=== PATIENT | male | born 1965 | race Caucasian/White ===

== ENCOUNTER 2021-04-08 03:29 | Inpatient (IN) | payer MEDICAID ==
[~2021-04-08] VITALS: Ht 175.3 cm; Wt 131.0 kg
[2021-04-08] MEDS ORDERED: vancomycin/NS 1 GM ADD-VANTAGE 250 ML IV ONE (05:20)
[2021-04-08] MEDS ORDERED: TETanus/Pertussis (Acell)/Diphther VAC/PF (Tdap-Adult) 0.5ml syringe IMVAC ONE (05:20)
--- NOTE | 2021-04-08 06:30 | NUR ---
pt has wounds to his bilateral lower legs. some open and raw looking but no obvious drainage. pt has redness to his legs up to his abd and a demarkation around his upper abd with redness and then his upper chest is a normal pink color. pt states the redness in his abd is new. the wounds have been going on for a while now and are getting worse. he states he was using lidoderm patches on the open spots on his legs.
[2021-04-08 07:42] LABS: BASOPHILS # (AUTO) 0.1 X10'3 (0-0.2); BASOPHILS % (AUTO) 1.2 % (0-1); EOSINOPHILS # (AUTO) 0.2 X10'3 (0-0.9); EOSINOPHILS % (AUTO) 2.9 % (0-6); HEMATOCRIT 39.9 % (42.0-52.0); HEMOGLOBIN 13.1 g/dl (14.0-17.9); LYMPHOCYTES # (AUTO) 1.6 X10'3 (1.1-4.8); LYMPHOCYTES % (AUTO) 18.8 % (21-51); MEAN CORPUSCULAR HEMOGLOBIN 26.9 PG (27.0-31.0); MEAN CORPUSCULAR HGB CONC 32.8 g/dL (33.0-36.5); MEAN CORPUSCULAR VOLUME 82.2 FL (78-98); MEAN PLATELET VOLUME 6.9 FL (7.4-10.4); MONOCYTES # (AUTO) 1.3 X10'3 (0-0.9); MONOCYTES % (AUTO) 14.9 % (2-12); NEUTROPHILS # (AUTO) 5.2 X10'3 (1.8-7.7); NEUTROPHILS % (AUTO) 62.2 % (42-75); PLATELET COUNT 270 X10'3 (140-440); RED BLOOD COUNT 4.85 X10'6 (4.70-6.10); RED CELL DISTRIBUTION WIDTH 16.7 % (11.5-14.5); WHITE BLOOD COUNT 8.4 X10'3 (4.5-11.0)
[2021-04-08 07:57] LABS: ALANINE AMINOTRANSFERASE 37 U/L (12-78); ALBUMIN 2.9 G/DL (3.4-5.0); ALBUMIN/GLOBULIN RATIO 0.5 (1.1-1.5); ALKALINE PHOSPHATASE 191 IU/L (46-116); ANION GAP 10 (8-16); ASPARTATE AMINO TRANSFERASE 25 U/L (10-37); BILIRUBIN,TOTAL 1.5 MG/DL (0.1-1.0); BLOOD UREA NITROGEN 18 MG/DL (7-18); BUN/CREATININE RATIO 11.5 (5.4-32.0); CALCIUM 8.4 MG/DL (8.5-10.1); CHLORIDE 102 MMOL/L (99-107); CREATININE 1.57 MG/DL (0.60-1.10); GLUCOSE 137 MG/DL (70-104); POTASSIUM 4.4 MMOL/L (3.5-5.1); SODIUM 140 MMOL/L (135-145); TOTAL CARBON DIOXIDE 27.9 MMOL/L (24-32); TOTAL PROTEIN 8.3 G/DL (6.4-8.2); eGFR 46 ML/MIN
[2021-04-08] MEDS ORDERED: furosemide 40mg/4ml inj IV ONE (08:30)
[2021-04-08] MEDS ORDERED: metoprolol tartrate 1mg/ml inj IV ONE ×3 (08:30→15:00)
[2021-04-08] MEDS ORDERED: magnesium hydroxide 30ml (MOM) UD suspension PO PRN (08:40)
[2021-04-08] MEDS ORDERED: diltiazem 5mg/ml 5ml inj. IV ONE (08:40)
[2021-04-08] MEDS ORDERED: mag hydrox/Alum hydrox/simeth 30ml oral suspension PO PRN (08:40)
[2021-04-08] MEDS ORDERED: enoxaparin 40mg/0.4ml syringe SUBCUT SCH (08:49)
--- NOTE | 2021-04-08 09:00 | NUR ---
Attempted to take pictures of the wounds on the pt's legs but the camera battery is and the other battery on the unit is not the right type and can't find another camera on the unit.
--- NOTE | 2021-04-08 09:40 | NUR ---
spoke with dr granda regarding patient's home medications on the external medication hx on 03/31 his lasix was doubled to 80 mg daily and his metoprolol was double to 100 mg bid. patient reports not taking the increased doses because" the lipitor made me schizophrenic" daniella talks very fast,switches subjects rapidly and waves his arms around frequently
[2021-04-08] MEDS ORDERED: diphenhydrAMINE 50 mg/ml inj IV ONE (09:50)
[2021-04-08] MEDS ORDERED: metoprolol succinate 25mg (24-HOUR) SR. Tablet PO ONE (09:50)
[2021-04-08] MEDS ORDERED: morphine 4 MG/ML inj SYRINge IV ONE (09:50)
[2021-04-08] MEDS: acetaminophen 325mg tablet PO PRN (09:56)
[2021-04-08 10:06] LABS: URINE AMPHETAMINE SCREEN POSITIVE (Neg); URINE BARBITUATE SCREEN NEGATIVE (Neg); URINE BENZODIAZEPINES SCREEN POSITIVE (Neg); URINE CANNABINOID SCREEN NEGATIVE (Neg); URINE COCAINE SCREEN NEGATIVE (Neg); URINE METHADONE SCREEN NEGATIVE (Neg); URINE OPIATE SCREEN NEGATIVE (Neg); URINE PHENCYCLIDINE SCREEN NEGATIVE (Neg)
--- NOTE | 2021-04-08 10:53 | NUR ---
PHONE REPORT TO MANDO BAUER, RN AWARE THAT PHOTOS OF WOUNDS NOT TAKEN DUE TO ER [facility] NOT WORKING, PATIENT TO GO TO 3018A ON MONITOR WITH RN
[2021-04-08] MEDS ORDERED: FURO80TA3 PO (10:55)
[2021-04-08] MEDS ORDERED: LISI20TA28 PO (10:56)
[2021-04-08] MEDS ORDERED: METO100T14 PO (10:57)
[2021-04-08] MEDS ORDERED: APIX5TAB3 PO (10:58)
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
[2021-04-08 12:29] VITALS: BP 148/105
--- NOTE | 2021-04-08 12:30 | NUR ---
Page Sent promotional table spacer PAGER ID: [phone] MESSAGE: Edilson Donovan. Pt is in room, in A flutter HR 130s to 140s, Please adviseFatmata [id number]
[2021-04-08 15:00] VITALS: BP 127/86
--- NOTE | 2021-04-08 16:28 | NUR ---
promotional table spacer PAGER ID: [phone] MESSAGE: [id number] Edilson. Pt is having anxiety attack and would like some Ativan. Fatmata [id number]
[2021-04-08] MEDS: ceFAZolin/D5W- 1GM premix 50 ML IV SCH (16:58)
[2021-04-08] MEDS: LORazepam 2 mg/ml vial IV PRN (17:23)
[2021-04-08 18:00] VITALS: BP 130/73
--- NOTE | 2021-04-08 18:26 | NUR ---
Patient in room PCU 3018. I have received report from Fatmata BAUER and had the opportunity to ask questions and assume patient care. Patient sleeping for bedside report.
[2021-04-08] MEDS: apixaban 5mg tablet PO SCH (19:59)
[2021-04-08 20:00] VITALS: BP 93/65
[2021-04-08] MEDS: furosemide 40mg/4ml inj IV SCH (20:00)
[2021-04-08] MEDS ORDERED: metoprolol tartrate 50mg tablet PO SCH (20:00)
[2021-04-08] MEDS: metoprolol tartrate 50mg tablet PO SCH (20:00)
--- NOTE | 2021-04-08 21:06 | NUR ---
Spoke to Dr. Abel regarding pain in lower legs. Dr. Abel comfortable ordering 2mg Morphine IV every 4 hours as needed for pain.
[2021-04-08 21:08] VITALS: BP 108/84
[2021-04-08 22:00] VITALS: BP 108/76
[2021-04-08] MEDS: morphine 2 MG/ML inj. syringe IV PRN (23:03)
--- NOTE | 2021-04-08 23:22 | NUR ---
Patient refused 2mg Morphine, patient requested 1mg to see how he felt with half the dosage. 1mg Morphine given 2303 PRN for severe pain. Patient felt pain relief with 1mg. Will ask Dr. Abel to change the order to 1mg Morphine as needed for pain every 4 hours. Addendum: 04/08/21 at 2333 by Kristen Green RN 1mg Morphine waste witnessed by Stas BAUER.
[2021-04-08] MEDS ORDERED: morphine 2 MG/ML inj. syringe IV PRN (23:25)
[2021-04-09] MEDS: ceFAZolin/D5W- 1GM premix 50 ML IV SCH ×4 (00:53→23:28)
[2021-04-09 02:00] VITALS: BP 138/72
--- NOTE | 2021-04-09 04:07 | NUR ---
Patient finally sleeping around 0300.
--- NOTE | 2021-04-09 05:10 | NUR ---
Patient now awake and requesting a shower, willing to wait until later in the morning
--- NOTE | 2021-04-09 05:10 | NUR ---
Several times patient removed tele monitor and nasal canula. Re-educated patient several times about the importance of wearing both.
[2021-04-09] MEDS: LORazepam 2 mg/ml vial IV PRN ×2 (05:53→22:29)
[2021-04-09 06:00] VITALS: BP 155/111
--- NOTE | 2021-04-09 06:35 | NUR ---
Problems reprioritized. Patient report given, questions answered & plan of care reviewed with Nancy RN. Patient awake for report and denies needs.
--- NOTE | 2021-04-09 06:36 | NUR ---
Patient in room PCU 3018. I have received report from Kristen BAUER and had the opportunity to ask questions and assume patient care.
[2021-04-09] MEDS: furosemide 40mg/4ml inj IV SCH ×2 (07:22→19:46)
[2021-04-09] MEDS: apixaban 5mg tablet PO SCH ×2 (07:30→19:47)
[2021-04-09] MEDS: metoprolol tartrate 50mg tablet PO SCH ×2 (07:30→19:46)
[2021-04-09] MEDS: lisinopril 20mg tablet PO SCH (07:31)
[2021-04-09 08:14] LABS: BASOPHILS # (AUTO) 0.1 X10'3 (0-0.2); BASOPHILS % (AUTO) 1.3 % (0-1); EOSINOPHILS # (AUTO) 0.1 X10'3 (0-0.9); EOSINOPHILS % (AUTO) 1.4 % (0-6); HEMATOCRIT 42.1 % (42.0-52.0); HEMOGLOBIN 13.5 g/dl (14.0-17.9); LYMPHOCYTES % (AUTO) 20.3 % (21-51); MEAN CORPUSCULAR HEMOGLOBIN 26.8 PG (27.0-31.0); MEAN CORPUSCULAR HGB CONC 32.1 g/dL (33.0-36.5); MEAN CORPUSCULAR VOLUME 83.3 FL (78-98); MEAN PLATELET VOLUME 7.7 FL (7.4-10.4); MONOCYTES # (AUTO) 1.2 X10'3 (0-0.9); MONOCYTES % (AUTO) 11.9 % (2-12); NEUTROPHILS # (AUTO) 6.3 X10'3 (1.8-7.7); NEUTROPHILS % (AUTO) 65.1 % (42-75); PLATELET COUNT 332 X10'3 (140-440); RED BLOOD COUNT 5.05 X10'6 (4.70-6.10); RED CELL DISTRIBUTION WIDTH 16.7 % (11.5-14.5); WHITE BLOOD COUNT 9.7 X10'3 (4.5-11.0)
[2021-04-09 08:42] LABS: ALANINE AMINOTRANSFERASE 42 U/L (12-78); ALBUMIN/GLOBULIN RATIO 0.6 (1.1-1.5); ALKALINE PHOSPHATASE 193 IU/L (46-116); ANION GAP 10 (8-16); ASPARTATE AMINO TRANSFERASE 45 U/L (10-37); BILIRUBIN,TOTAL 2.4 MG/DL (0.1-1.0); BLOOD UREA NITROGEN 24 MG/DL (7-18); CALCIUM 8.7 MG/DL (8.5-10.1); CHLORIDE 100 MMOL/L (99-107); GLUCOSE 131 MG/DL (70-104); POTASSIUM 4.2 MMOL/L (3.5-5.1); SODIUM 136 MMOL/L (135-145); TOTAL CARBON DIOXIDE 26.3 MMOL/L (24-32); TOTAL PROTEIN 8.3 G/DL (6.4-8.2); eGFR 45 ML/MIN
[2021-04-09] MEDS: morphine 2 MG/ML inj. syringe IV PRN ×3 (09:46→18:54)
[2021-04-09 11:00] VITALS: BP 115/80
--- NOTE | 2021-04-09 16:49 | NUR ---
Initial: Pt admit with CHF exacerbation and sepsis secondary to BLE cellulitis. Pt with multiple small open wounds to BLE per H&P. Wound care has been consulted, pending assessment at this time. Pt seen at bedside provided with written and verbal protein education. Pt appeared slightly confused during visit and reports feeling dizzy r/t medications. RD encouraged pt to f/u with RN. Pt on a heart healthy diet documented to be refusing meals, likely poor PO intake is r/t current mentation. RD encouraged PO intake and provided pt with alternative menu to provide additional food options. Food preferences were obtained and d/w dietary, see below. Noted that pt with food at bedside brought in by family. Pt denies difficulty chewing/swallowing. Pt provided with RD contact information and encouraged to reach out. Will continue to follow closely. Recommendations: 1) Continue heart healthy diet; encourage PO intake 2) Monitor need for ONS 3) [place] food preferences: fruit TID, yogurt BIDBD, cottage cheese with pineapple WL 4) Bowel care per rx 5) Scaled wt this admit; weekly scaled weights thereafter Addendum: 04/09/21 at [address] Amended: Links added.
[2021-04-09 18:00] VITALS: BP 117/71
--- NOTE | 2021-04-09 18:05 | NUR ---
Problems reprioritized. Patient report given, questions answered & plan of care reviewed with Barbara BAUER.
[2021-04-09] MEDS: lactobacillus rhamnosus 10,000 MMU CELLS/CAPSULE PO SCH (19:47)
[2021-04-09 22:00] VITALS: BP 114/78
[2021-04-09] MEDS: ondansetron/PF 4mg/2ml inj IV PRN (22:33)
[2021-04-10 02:00] VITALS: BP 112/68
[2021-04-10] MEDS: morphine 2 MG/ML inj. syringe IV PRN ×3 (04:20→17:37)
--- NOTE | 2021-04-10 06:00 | NUR ---
Patient in room PCU 3018. I have received report from Ronak BAUER and had the opportunity to ask questions and assume patient care. Addendum: 04/10/21 at 1812 by Sterling Aguilar RN wrong nurse- [email or web address]_sky
--- NOTE | 2021-04-10 06:15 | NUR ---
Problems reprioritized. Patient report given, questions answered & plan of care reviewed with JUANCARLOS Katz.
[2021-04-10 06:57] LABS: BASOPHILS # (AUTO) 0.1 X10'3 (0-0.2); BASOPHILS % (AUTO) 0.6 % (0-1); EOSINOPHILS # (AUTO) 0.4 X10'3 (0-0.9); EOSINOPHILS % (AUTO) 3.6 % (0-6); HEMATOCRIT 42.8 % (42.0-52.0); LYMPHOCYTES # (AUTO) 2.2 X10'3 (1.1-4.8); LYMPHOCYTES % (AUTO) 21.2 % (21-51); MEAN CORPUSCULAR HEMOGLOBIN 27.2 PG (27.0-31.0); MEAN CORPUSCULAR HGB CONC 32.6 g/dL (33.0-36.5); MEAN CORPUSCULAR VOLUME 83.5 FL (78-98); MEAN PLATELET VOLUME 7.7 FL (7.4-10.4); MONOCYTES # (AUTO) 2.1 X10'3 (0-0.9); MONOCYTES % (AUTO) 20.2 % (2-12); NEUTROPHILS # (AUTO) 5.6 X10'3 (1.8-7.7); NEUTROPHILS % (AUTO) 54.4 % (42-75); PLATELET COUNT 301 X10'3 (140-440); RED BLOOD COUNT 5.13 X10'6 (4.70-6.10); RED CELL DISTRIBUTION WIDTH 16.8 % (11.5-14.5); WHITE BLOOD COUNT 10.2 X10'3 (4.5-11.0)
[2021-04-10 07:00] VITALS: BP 108/89
[2021-04-10] MEDS: mineral oil/petrolatum, white cream 113gm jar TP SCH (08:00)
[2021-04-10 08:07] LABS: ALANINE AMINOTRANSFERASE 68 U/L (12-78); ALBUMIN 2.6 G/DL (3.4-5.0); ALBUMIN/GLOBULIN RATIO 0.5 (1.1-1.5); ALKALINE PHOSPHATASE 170 IU/L (46-116); ANION GAP 9 (8-16); ASPARTATE AMINO TRANSFERASE 95 U/L (10-37); BILIRUBIN,TOTAL 2.2 MG/DL (0.1-1.0); BLOOD UREA NITROGEN 33 MG/DL (7-18); BUN/CREATININE RATIO 18.3 (5.4-32.0); CALCIUM 8.1 MG/DL (8.5-10.1); CHLORIDE 100 MMOL/L (99-107); GLUCOSE 118 MG/DL (70-104); POTASSIUM 4.8 MMOL/L (3.5-5.1); SODIUM 136 MMOL/L (135-145); TOTAL CARBON DIOXIDE 26.8 MMOL/L (24-32); TOTAL PROTEIN 7.7 G/DL (6.4-8.2); eGFR 39 ML/MIN
[2021-04-10] MEDS: furosemide 40mg/4ml inj IV SCH (08:22)
[2021-04-10] MEDS: apixaban 5mg tablet PO SCH ×2 (08:24→21:03)
[2021-04-10] MEDS: lactobacillus rhamnosus 10,000 MMU CELLS/CAPSULE PO SCH ×2 (08:24→21:03)
[2021-04-10] MEDS: lisinopril 20mg tablet PO SCH (08:28)
[2021-04-10] MEDS: ceFAZolin/D5W- 1GM premix 50 ML IV SCH ×2 (08:29→15:44)
[2021-04-10] MEDS: metoprolol tartrate 50mg tablet PO SCH ×2 (08:29→21:03)
[2021-04-10 09:01] LABS: PLATELET ESTIMATE NORMAL; TOTAL CELLS COUNTED 100
[2021-04-10 09:02] LABS: ANISOCYTOSIS 1+
[2021-04-10 11:00] VITALS: BP 114/87
[2021-04-10] MEDS: LORazepam 2 mg/ml vial IV PRN ×2 (13:10→21:16)
[2021-04-10 15:00] VITALS: BP_SYST 121; BP_SYST 128; BP_DIAS 73; BP_DIAS 94
--- NOTE | 2021-04-10 17:03 | NUR ---
up to shower with shower chair. dresings removed and tele notified. iv wrapped. pt deny diizzyness or sob
[2021-04-10 18:00] VITALS: BP 138/77
--- NOTE | 2021-04-10 18:34 | NUR ---
Problems reprioritized. Patient report given, questions answered & plan of care reviewed with Joshua BAUER.
[2021-04-10] MEDS: furosemide 20 MG/2 ML vial IV SCH (21:04)
[2021-04-10 22:00] VITALS: BP 143/86
--- NOTE | 2021-04-10 23:48 | NUR ---
Patient refusing telemetry after patient teaching. Patient currently refusing all medicine administration after patient teaching of importance of meds.
[2021-04-11] MEDS: ondansetron/PF 4mg/2ml inj IV PRN ×2 (00:24→18:54)
[2021-04-11] MEDS: morphine 2 MG/ML inj. syringe IV PRN ×4 (00:24→22:54)
[2021-04-11] MEDS: ceFAZolin/D5W- 1GM premix 50 ML IV SCH ×4 (00:25→23:52)
[2021-04-11 02:00] VITALS: BP 116/73
[2021-04-11] MEDS: LORazepam 2 mg/ml vial IV PRN ×3 (03:15→22:35)
[2021-04-11 06:00] VITALS: BP 155/61
--- NOTE | 2021-04-11 06:00 | NUR ---
Patient in room PCU 3012. I have received report from farzana cartagena and had the opportunity to ask questions and assume patient care.
[2021-04-11 07:22] LABS: BASOPHILS # (AUTO) 0.1 X10'3 (0-0.2); BASOPHILS % (AUTO) 1.2 % (0-1); EOSINOPHILS # (AUTO) 0.1 X10'3 (0-0.9); EOSINOPHILS % (AUTO) 1.3 % (0-6); HEMATOCRIT 44.2 % (42.0-52.0); LYMPHOCYTES # (AUTO) 1.7 X10'3 (1.1-4.8); LYMPHOCYTES % (AUTO) 15.4 % (21-51); MEAN CORPUSCULAR HEMOGLOBIN 26.6 PG (27.0-31.0); MEAN CORPUSCULAR HGB CONC 31.7 g/dL (33.0-36.5); MEAN PLATELET VOLUME 7.5 FL (7.4-10.4); MONOCYTES # (AUTO) 1.7 X10'3 (0-0.9); NEUTROPHILS # (AUTO) 7.6 X10'3 (1.8-7.7); NEUTROPHILS % (AUTO) 67.1 % (42-75); PLATELET COUNT 318 X10'3 (140-440); RED BLOOD COUNT 5.26 X10'6 (4.70-6.10); RED CELL DISTRIBUTION WIDTH 17.2 % (11.5-14.5); WHITE BLOOD COUNT 11.3 X10'3 (4.5-11.0)
[2021-04-11 07:34] LABS: ALANINE AMINOTRANSFERASE 255 U/L (12-78); ALBUMIN/GLOBULIN RATIO 0.5 (1.1-1.5); ALKALINE PHOSPHATASE 184 IU/L (46-116); ANION GAP 12 (8-16); ASPARTATE AMINO TRANSFERASE 427 U/L (10-37); BILIRUBIN,TOTAL 3.1 MG/DL (0.1-1.0); BLOOD UREA NITROGEN 37 MG/DL (7-18); BUN/CREATININE RATIO 22.2 (5.4-32.0); CALCIUM 8.8 MG/DL (8.5-10.1); CHLORIDE 100 MMOL/L (99-107); CREATININE 1.67 MG/DL (0.60-1.10); POTASSIUM 4.5 MMOL/L (3.5-5.1); SODIUM 138 MMOL/L (135-145); TOTAL CARBON DIOXIDE 26.4 MMOL/L (24-32); TOTAL PROTEIN 8.6 G/DL (6.4-8.2); eGFR 42 ML/MIN
[2021-04-11 07:35] LABS: GLUCOSE 99 MG/DL (70-104)
[2021-04-11 07:54] LABS: ANISOCYTOSIS 1+; PLATELET ESTIMATE NORMAL; TOTAL CELLS COUNTED 100
[2021-04-11] MEDS: mineral oil/petrolatum, white cream 113gm jar TP SCH (08:00)
[2021-04-11] MEDS: lisinopril 20mg tablet PO SCH (08:52)
[2021-04-11] MEDS: metoprolol tartrate 50mg tablet PO SCH ×2 (08:52→21:16)
[2021-04-11] MEDS: furosemide 20 MG/2 ML vial IV SCH ×2 (08:53→21:16)
[2021-04-11] MEDS: apixaban 5mg tablet PO SCH ×2 (08:55→21:15)
[2021-04-11] MEDS: lactobacillus rhamnosus 10,000 MMU CELLS/CAPSULE PO SCH ×2 (08:55→21:16)
[2021-04-11 11:00] VITALS: BP 126/69
--- NOTE | 2021-04-11 11:21 | NUR ---
pt having loud outbursts of anger and tearfulness. tangental. " i want to you to let me do what i want! i want to walk down the street.!" then immediately switching to " i want a rootbeer!" " why are you so patient with me!" refused to wear 02 or heart monitor. multiple atempts to have him wear tele but he removes it and gown and sits at bedside. currently pt allowed me to put on 02. 3Lnc.
--- NOTE | 2021-04-11 12:32 | NUR ---
calm relaxed johanna dietrich , rr 20. eyes open to verbal stim. federicoe rat bedside and gave the following info for page to md laurent to answer his question on recent etoh in take.PAGER ID: [phone] MESSAGE: [id number] janna Ortega- daughter says <1glass vodka / day. he has been cutting back on ETOH. ngozi BAUER [id number]
--- NOTE | 2021-04-11 15:00 | NUR ---
refusing vs, ABD US completed
[2021-04-11 18:00] VITALS: BP 153/114
--- NOTE | 2021-04-11 18:10 | NUR ---
Patient in room PCU 3012. I have received report from JUANCARLOS Katz and had the opportunity to ask questions and assume patient care.
--- NOTE | 2021-04-11 18:39 | NUR ---
Problems reprioritized. Patient report given, questions answered & plan of care reviewed with Bebe cartagena .
--- NOTE | 2021-04-12 02:49 | NUR ---
Page Sent PAGER ID: [phone] MESSAGE: RE: Nahun Waggoner RM 3012-A: Pt here for cellulitis, sepsis. Pos for meth on admit. Pt has q6h PRN Ativan 0.5 mg. Pt yelling, jumping up out of bed, removing tele and O2. Can we increase dose and/or freq of Ativan? Thanks, Bebe [phone]
[2021-04-12] MEDS ORDERED: LORazepam 2 mg/ml vial IV PRN (02:50)
[2021-04-12] MEDS: morphine 2 MG/ML inj. syringe IV PRN ×2 (04:06→19:51)
[2021-04-12 06:00] VITALS: BP 141/87
--- NOTE | 2021-04-12 06:00 | NUR ---
Patient in room PCU 3012. I have received report from brennen cartagena and had the opportunity to ask questions and assume patient care.
--- NOTE | 2021-04-12 06:28 | NUR ---
Problems reprioritized. Patient report given, questions answered & plan of care reviewed with JUANCARLOS Katz.
[2021-04-12 07:58] LABS: BASOPHILS # (AUTO) 0.1 X10'3 (0-0.2); BASOPHILS % (AUTO) 1.2 % (0-1); EOSINOPHILS # (AUTO) 0.2 X10'3 (0-0.9); HEMATOCRIT 45.2 % (42.0-52.0); HEMOGLOBIN 14.6 g/dl (14.0-17.9); LYMPHOCYTES # (AUTO) 1.9 X10'3 (1.1-4.8); LYMPHOCYTES % (AUTO) 17.8 % (21-51); MEAN CORPUSCULAR HGB CONC 32.4 g/dL (33.0-36.5); MEAN CORPUSCULAR VOLUME 83.3 FL (78-98); MEAN PLATELET VOLUME 7.9 FL (7.4-10.4); MONOCYTES # (AUTO) 1.4 X10'3 (0-0.9); MONOCYTES % (AUTO) 13.5 % (2-12); NEUTROPHILS % (AUTO) 65.5 % (42-75); PLATELET COUNT 354 X10'3 (140-440); RED BLOOD COUNT 5.42 X10'6 (4.70-6.10); RED CELL DISTRIBUTION WIDTH 17.1 % (11.5-14.5); WHITE BLOOD COUNT 10.7 X10'3 (4.5-11.0)
[2021-04-12] MEDS: mineral oil/petrolatum, white cream 113gm jar TP SCH (08:00)
[2021-04-12 08:09] LABS: ALANINE AMINOTRANSFERASE 323 U/L (12-78); ALBUMIN 2.8 G/DL (3.4-5.0); ALBUMIN/GLOBULIN RATIO 0.5 (1.1-1.5); ALKALINE PHOSPHATASE 160 IU/L (46-116); ANION GAP 8 (8-16); ASPARTATE AMINO TRANSFERASE 479 U/L (10-37); BILIRUBIN,TOTAL 2.3 MG/DL (0.1-1.0); BLOOD UREA NITROGEN 36 MG/DL (7-18); BUN/CREATININE RATIO 22.1 (5.4-32.0); CALCIUM 8.9 MG/DL (8.5-10.1); CHLORIDE 100 MMOL/L (99-107); CREATININE 1.63 MG/DL (0.60-1.10); GLUCOSE 127 MG/DL (70-104); POTASSIUM 4.7 MMOL/L (3.5-5.1); SODIUM 136 MMOL/L (135-145); TOTAL CARBON DIOXIDE 28.1 MMOL/L (24-32); TOTAL PROTEIN 8.1 G/DL (6.4-8.2); eGFR 44 ML/MIN
[2021-04-12] MEDS: furosemide 20 MG/2 ML vial IV SCH ×2 (08:25→19:21)
[2021-04-12] MEDS: lactobacillus rhamnosus 10,000 MMU CELLS/CAPSULE PO SCH ×2 (08:25→19:21)
[2021-04-12] MEDS: ceFAZolin/D5W- 1GM premix 50 ML IV SCH ×3 (08:25→23:04)
[2021-04-12] MEDS: lisinopril 20mg tablet PO SCH (08:26)
[2021-04-12] MEDS: metoprolol tartrate 50mg tablet PO SCH ×2 (08:26→19:21)
[2021-04-12] MEDS: apixaban 5mg tablet PO SCH ×2 (08:26→19:21)
[2021-04-12 11:00] VITALS: BP 112/90
--- NOTE | 2021-04-12 12:15 | NUR ---
Reassessment: Per WOC notes pt with full thickness venous ulcer to bilat lower legs. Pt documented to be refusing meals since admit with the exception of 25% PO intake x 1 meal. Pt has been seen by RD and provided with alternative menu and RD contact information. PO intake encouraged and pt receiving food preferences. Pt resistive to care per physical assessment and per MD note very sleepy. Likely that pt with poor PO intake r/t sleeping through meals. Recommend waking pt for meals with tray pass and allowing outside food to be brought in from home to optimize PO intake. LBM 04/09 with PRN bowel care available. D/w dietary to send prunes and prune juice with next meal to assist with bowel regularity, though pt would likely benefit from routine bowel care. Will continue to follow closely. Recommendations: 1) Continue heart healthy diet; encourage PO intake 2) Monitor need for ONS 3) [place] food preferences: fruit TID, yogurt BIDBD, cottage cheese with pineapple WL 4) Routine bowel care 5) Scaled wt this admit; weekly scaled weights thereafter Addendum: 04/12/21 at [address] Amended: Links added.
[2021-04-12 15:00] VITALS: BP 151/103
--- NOTE | 2021-04-12 18:18 | NUR ---
Patient in room PCU 3012. I have received report from JUANCARLOS Katz and had the opportunity to ask questions and assume patient care.
--- NOTE | 2021-04-12 18:18 | NUR ---
Problems reprioritized. Patient report given, questions answered & plan of care reviewed with Michelle BAUER.
--- NOTE | 2021-04-12 20:15 | NUR ---
Problems reprioritized. Patient report given, questions answered & plan of care reviewed with JUANCARLOS Simons.
--- NOTE | 2021-04-12 20:15 | NUR ---
Patient in room PCU 3012. I have received report from JUANCARLOS STAUFFER and had the opportunity to ask questions and assume patient care.
[2021-04-12 22:00] VITALS: BP 134/97
[2021-04-12] MEDS: acetaminophen 325mg tablet PO PRN (22:46)
[2021-04-13 02:00] VITALS: BP 118/58
[2021-04-13 02:02] VITALS: BP 139/76
--- NOTE | 2021-04-13 06:20 | NUR ---
Problems reprioritized. Patient report given, questions answered & plan of care reviewed with JUANCARLOS ORTIZ..
[2021-04-13 07:00] VITALS: BP 170/115
--- NOTE | 2021-04-13 07:16 | NUR ---
Patient in room U 3012. I have received report from Flor BAUER and had the opportunity to ask questions and assume patient care. Patient sitting on side of bed and is in no acute distress.
[2021-04-13 08:18] LABS: ALBUMIN 2.7 G/DL (3.4-5.0); ALBUMIN/GLOBULIN RATIO 0.5 (1.1-1.5); ANION GAP 7 (8-16); ASPARTATE AMINO TRANSFERASE 488 U/L (10-37); BILIRUBIN,TOTAL 2.5 MG/DL (0.1-1.0); BLOOD UREA NITROGEN 31 MG/DL (7-18); BUN/CREATININE RATIO 22.1 (5.4-32.0); CALCIUM 8.5 MG/DL (8.5-10.1); CHLORIDE 100 MMOL/L (99-107); GLUCOSE 148 MG/DL (70-104); POTASSIUM 4.2 MMOL/L (3.5-5.1); SODIUM 135 MMOL/L (135-145); TOTAL CARBON DIOXIDE 27.9 MMOL/L (24-32); TOTAL PROTEIN 7.8 G/DL (6.4-8.2); eGFR 52 ML/MIN
[2021-04-13 08:19] LABS: ALANINE AMINOTRANSFERASE 360 U/L (12-78); ALKALINE PHOSPHATASE 147 IU/L (46-116)
[2021-04-13 08:22] LABS: BASOPHILS # (AUTO) 0.1 X10'3 (0-0.2); BASOPHILS % (AUTO) 1.2 % (0-1); EOSINOPHILS # (AUTO) 0.2 X10'3 (0-0.9); EOSINOPHILS % (AUTO) 1.4 % (0-6); HEMATOCRIT 44.3 % (42.0-52.0); HEMOGLOBIN 14.4 g/dl (14.0-17.9); LYMPHOCYTES % (AUTO) 18.1 % (21-51); MEAN CORPUSCULAR HEMOGLOBIN 26.5 PG (27.0-31.0); MEAN CORPUSCULAR HGB CONC 32.4 g/dL (33.0-36.5); MEAN CORPUSCULAR VOLUME 81.9 FL (78-98); MONOCYTES % (AUTO) 17.9 % (2-12); NEUTROPHILS # (AUTO) 6.9 X10'3 (1.8-7.7); NEUTROPHILS % (AUTO) 61.4 % (42-75); PLATELET COUNT 337 X10'3 (140-440); RED BLOOD COUNT 5.41 X10'6 (4.70-6.10); RED CELL DISTRIBUTION WIDTH 17.2 % (11.5-14.5); WHITE BLOOD COUNT 11.2 X10'3 (4.5-11.0)
[2021-04-13] MEDS: ceFAZolin/D5W- 1GM premix 50 ML IV SCH (08:52)
[2021-04-13] MEDS: lactobacillus rhamnosus 10,000 MMU CELLS/CAPSULE PO SCH (08:52)
[2021-04-13] MEDS: furosemide 20 MG/2 ML vial IV SCH (08:52)
[2021-04-13] MEDS: apixaban 5mg tablet PO SCH (08:52)
[2021-04-13 08:53] VITALS: BP_SYST 175
[2021-04-13] MEDS: lisinopril 20mg tablet PO SCH (08:53)
[2021-04-13] MEDS: metoprolol tartrate 50mg tablet PO SCH (08:53)
[2021-04-13] MEDS: mineral oil/petrolatum, white cream 113gm jar TP SCH (08:54)
[2021-04-13] MEDS: morphine 2 MG/ML inj. syringe IV PRN (08:57)
[2021-04-13 09:11] LABS: TOTAL CELLS COUNTED 100
[2021-04-13 09:14] LABS: ANISOCYTOSIS 1+; ELLIPTOCYTES FEW; PLATELET ESTIMATE NORMAL; POLYCHROMASIA 1+; STOMATOCYTES FEW; TEAR DROP CELLS FEW
[2021-04-13] MEDS ORDERED: CEPH-585 PO (10:20)
--- NOTE | 2021-04-13 11:28 | NUR ---
lucas called into [facility] in [place]
--- NOTE | 2021-04-13 12:03 | NUR ---
Patient was dc to home and picked up by x . PIV was removed with cannula intact. RX was called into [facility] in [place]. DC instructions and warning s/s. were reviewed with the patient and he verbalized understanding. Patient alert, oriented and in no distress at time of dc.
== END 2021-04-13 11:57 | disposition home or self-care (01) | DRG 720 ==
LOC: ER 03:30 → ED HOLD 08:38 → PCU 3S 11:55
PROVIDERS: ADMIT Family Medicine; ATTEND Family Medicine
PROC: 3E0234Z Introduction of Serum, Toxoid and Vaccine into Muscle, Percutaneous Approach (ICD-10-PCS; principal; 2021-04-08)
DX: A41.9 Sepsis, unspecified organism (principal); G93.41 Metabolic encephalopathy; I50.23 Acute on chronic systolic (congestive) heart failure; I11.0 Hypertensive heart disease with heart failure; I48.92 Unspecified atrial flutter; F15.10 Other stimulant abuse, uncomplicated; I87.2 Venous insufficiency (chronic) (peripheral); S81.802A Unspecified open wound, left lower leg, initial encounter; S81.801A Unspecified open wound, right lower leg, initial encounter; X58.XXXA Exposure to other specified factors, initial encounter; R74.01 Elevation of levels of liver transaminase levels; L03.115 Cellulitis of right lower limb; L03.116 Cellulitis of left lower limb; F17.220 Nicotine dependence, chewing tobacco, uncomplicated; Z91.19 Patient's noncompliance with other medical treatment and regimen; Z23 Encounter for immunization; Z71.51 Drug abuse counseling and surveillance of drug abuser; Y93.89 Activity, other specified; Y92.89 Other specified places as the place of occurrence of the external cause; Y99.8 Other external cause status; Z91.14 Patient's other noncompliance with medication regimen
CPT/HCPCS: 36415; 71045; 76700; 80053; 80305; 83605; 83735; 83880; 84484; 85007; 85025; 85610; 87040; 87081; 90471; 90715; 93005; 93306; 93922; 93925; 93970; 96374; 97116; 97161; 97530; 99285; G0378; J0690; J1200; J1650; J1940; J2060; J2270; J2405; J3370; J3490

== ENCOUNTER 2022-03-11 23:39 | Emergency (ER) | payer MEDICAID ==
[~2022-03-11] VITALS: Ht 177.8 cm; Wt 96.3 kg
[~2022-03-11 23:39] MED LIST: APIX5TAB3 PO; CEPH-585 PO; FURO80TA3 PO; LISI20TA28 PO; METO100T14 PO
[2022-03-12 00:32] LABS: BASOPHILS # (AUTO) 0.1 X10'3 (0-0.2); EOSINOPHILS # (AUTO) 0.4 X10'3 (0-0.9); EOSINOPHILS % (AUTO) 3.1 % (0-6); HEMATOCRIT 42.3 % (42.0-52.0); HEMOGLOBIN 14.5 g/dl (14.0-17.9); LYMPHOCYTES # (AUTO) 2.6 X10'3 (1.1-4.8); LYMPHOCYTES % (AUTO) 22.3 % (21-51); MEAN CORPUSCULAR HEMOGLOBIN 27.5 PG (27.0-31.0); MEAN CORPUSCULAR HGB CONC 34.2 g/dL (33.0-36.5); MEAN CORPUSCULAR VOLUME 80.2 FL (78-98); MEAN PLATELET VOLUME 7.1 FL (7.4-10.4); MONOCYTES # (AUTO) 1.5 X10'3 (0-0.9); MONOCYTES % (AUTO) 13.1 % (2-12); NEUTROPHILS % (AUTO) 60.5 % (42-75); PLATELET COUNT 379 X10'3 (140-440); RED BLOOD COUNT 5.28 X10'6 (4.70-6.10); RED CELL DISTRIBUTION WIDTH 21.7 % (11.5-14.5); WHITE BLOOD COUNT 11.5 X10'3 (4.5-11.0)
[2022-03-12 00:45] LABS: ALANINE AMINOTRANSFERASE 33 U/L (12-78); ALBUMIN 3.1 G/DL (3.4-5.0); ALBUMIN/GLOBULIN RATIO 0.6 (1.1-1.5); ALKALINE PHOSPHATASE 282 IU/L (46-116); ANION GAP 4 (8-16); ASPARTATE AMINO TRANSFERASE 23 U/L (10-37); BILIRUBIN,TOTAL 0.9 MG/DL (0.1-1.0); BLOOD UREA NITROGEN 47 MG/DL (7-18); BUN/CREATININE RATIO 25.4 (5.4-32.0); CALCIUM 9.5 MG/DL (8.5-10.1); CHLORIDE 98 MMOL/L (99-107); CREATININE 1.85 MG/DL (0.60-1.10); GLUCOSE 107 MG/DL (70-104); POTASSIUM 4.9 MMOL/L (3.5-5.1); SODIUM 130 MMOL/L (135-145); TOTAL CARBON DIOXIDE 27.6 MMOL/L (24-32); eGFR 38 ML/MIN
[2022-03-12 01:50] LABS: ANISOCYTOSIS 3+; PLATELET ESTIMATE NORMAL
[2022-03-12 03:16] VITALS: BP 107/60
== END 2022-03-12 04:10 | disposition home or self-care (01) ==
LOC: ER 23:40
DX: R06.09 Other forms of dyspnea (principal); I48.91 Unspecified atrial fibrillation; R07.2 Precordial pain; I13.0 Hypertensive heart and chronic kidney disease with heart failure and stage 1 through stage 4 chronic kidney disease, or unspecified chronic kidney disease; N18.9 Chronic kidney disease, unspecified; Z72.89 Other problems related to lifestyle; Z79.2 Long term (current) use of antibiotics; Z79.899 Other long term (current) drug therapy
CPT/HCPCS: 36415; 71045; 80053; 83880; 84484; 85008; 85025; 93005; 99285